=== PATIENT | male | born 1965 | race Two or more races ===

== ENCOUNTER 2016-07-20 16:15 | Emergency (ER) | payer SELFPAY ==
[2016-07-20 15:57] LABS: BASO % 0.2 % (0-2); EOS % 0.3 % (0-7); HCT-HEMATOCRIT 46.7 % (36.0-53.5); HGB-HEMOGLOBIN 17.1 gm/dl (13.5-17.0); IMMATURE GRANULOCYTES ABSOLUTE 0.02 tho/cmm (0-0.03); IMMATURE GRANULOCYTES PERCENT 0.2 % (0-0.3); LYMPH % 23.3 % (20-45); LYMPH ABSOLUTE COUNT 2.1 tho/cmm (0.8-4.5); MCH (MEAN CORPUSCULAR HGB) 32.6 pg (28.0-32.0); MCV (MEAN CELL VOLUME) 89.1 fl (82.0-96.0); MONO % 6.3 % (0-12); MONOCYTE ABSOLUTE COUNT 0.6 tho/cmm (0.0-1.2); NEUTROPHIL ABSOLUTE COUNT 6.3 tho/cmm (1.6-8.0); NEUTROPHIL-AUTOMATED 6.3 tho/cmm (1.6-8.0); NEUTROPHILS % 69.7 % (40-80); PLATELET COUNT 216 tho/cmm (150-450); RED BLOOD COUNT 5.24 mil/cmm (4.40-5.70); RED CELL DISTRIBUTION WIDTH 12.6 % (12.4-16.4)
[2016-07-20 16:01] LABS: MCHC MEAN CORPUSCULAR HGB CONC 36.6 % (32.0-36.0)
[~2016-07-20 16:15] MED LIST: AMLODIPINE BESY10 M1 PO; AMOXICILLI400 MG/51; AMOXICILLIN500 MG PO; HYDROCHLOROTHIA25 M1 PO; LISINOPRIL-HCTZ PO
[2016-07-20 16:25] LABS: ALB/GLOB RATIO 1.2 (0.8-2.0); ALBUMIN 4.4 g/dl (3.5-5.0); ALKALINE PHOSPHATASE 75 U/L (33-138); ALT/SGPT 186 U/L (12-78); ANION GAP 12 mmol/L (0-20); AST/SGOT 82 U/L (10-40); BLOOD UREA NITROGEN 13 mg/dl (6-24); CALCIUM 8.6 mg/dl (8.5-10.5); CARBON DIOXIDE-VENOUS 28 mmol/L (22-32); CHLORIDE 101 mmol/l (96-110); CREATININE 0.91 mg/dl (0.60-1.30); GLUCOSE 127 mg/dL (70-110); POTASSIUM 3.1 mmol/L (3.7-5.1); SODIUM 138 mmol/L (135-145); eGFR VALUE FOR BLACK >90 mL/Min
== END 2016-07-20 17:10 ==
LOC: EDMED 16:15
PROVIDERS: Emergency Medicine
DX: R07.9 Chest pain, unspecified (principal); R07.0 Pain in throat; I10 Essential (primary) hypertension; F17.200 Nicotine dependence, unspecified, uncomplicated